=== PATIENT | female | born 1945 | race Caucasian/White ===

== ENCOUNTER 2017-06-03 11:54 | Outpatient (CLI) | payer MEDICARE | END 2017-06-03 11:55 | disposition short-term general hospital (02) | LOC: EMS 11:54 | PROVIDERS: ATTEND Surgery | DX: R03.0 Elevated blood-pressure reading, without diagnosis of hypertension (principal) | CPT/HCPCS: A0170; A0425; A0429 ==

== ENCOUNTER 2017-12-12 20:51 | Emergency (ER) | payer MEDICARE ==
[2017-12-12 21:02] VITALS: BP 156/71
--- NOTE | 2017-12-12 21:39 | XRAY Report ---
Procedure Date: 12/12/2017 Accession Number: [id number] / [id number] Procedure: XR - Wrist 3 View LT CPT Code: FULL RESULT: EXAM: LEFT WRIST RADIOGRAPHY EXAM DATE: 12/12/2017 09:16 PM. CLINICAL HISTORY: Fall. Left wrist pain after fall today. COMPARISON: None. TECHNIQUE: 3 views. FINDINGS: Bones: Acute left distal radial fracture, intra-articular with dorsal buckling of the cortex. Adjacent soft tissue swelling. Chronic nonunion ulnar styloid fracture. Small chronic-appearing bone fragment seen dorsal to the carpal bones measures 1.9 mm. Large dorsal wrist soft tissue swelling. Joints: No subluxations. IMPRESSION: Acute left distal radial fracture, intra-articular with dorsal buckling of the cortex. Adjacent soft tissue swelling. Large dorsal wrist soft tissue swelling. RADIA
--- NOTE | 2017-12-12 21:53 | ED Physician Documentation ---
History of Present Illness - Stated complaint Stated Complaint: LT WRIST INJURY - Chief complaint Chief Complaint: Ext Problem - History obtained from History obtained from: Patient - Additonal information Additional information: 72-year-old female presents to the emergency department with left wrist pain after falling and landed on it. The patient denies injury to her head, neck, torso or lower extremities. Symptoms are described as moderate. No other Injuries. No other associated symptoms. No relieving factors Review of Systems Constitutional: denies: Fever Nose: denies: Congestion Musculoskeletal: reports: Extremity pain, Extremity swelling. denies: Neck pain , Back pain, Pain with weight bearing, Reviewed and negative Immunocompromised: denies: Chemotherapy PD PAST MEDICAL HISTORY - Present Medications Home Medications: Ambulatory Orders Medication Instructions Recorded Confirmed Aspirin 81 mg PO 12/12/17 Atorvastatin [Lipitor] 0 mg 12/12/17 Cholecalciferol [Vitamin D3] 5,000 unit 12/12/17 Escitalopram [Lexapro] 10 mg PO DAILY 12/12/17 12/12/17 Lisinopril 40 mg PO 12/12/17 Metoprolol Tartrate 25 mg PO 12/12/17 Multivitamin/Iron/Folic Acid 1 each PO 12/12/17 [Centrum Adults Tablet] oxyCODONE [Roxicodone] 5 mg PO ONCE PRN #14 tablet 12/12/17 - Allergies Allergies/Adverse Reactions: Allergies Allergy/AdvReac Type Severity Reaction Status Date / Time acetaminophen [From Tylenol] Allergy Unknown Verified 12/12/17 21:04 PD ED PE NORMAL - General General: Alert and oriented X 3, No acute distress - HEENT HEENT: Atraumatic, PERRL, EOMI, Moist mucous membranes - Neck Neck: Supple, no meningeal sign - Derm Derm: Normal color - Extremities Extremities: Other (The patient has full active range of motion of bilateral shoulders, bilateral elbows. The patient is tender to palpation in her left wrist, there is no laceration or crepitus. The patient has normal brisk cap refill and a normal radial pulse.). No: No tenderness to palpate - Neuro Neuro: Alert and oriented X 3, Normal speech - Psych Psych: Normal mood Results - Vitals Vitals: Vital Signs - 24 hr 12/12/17 21:00 Temperature 36.5 C Heart Rate 60 Respiratory 16 Rate Blood Pressure 156/71 H O2 Saturation 98 Oxygen O2 Source Room air - Rads (name of study) X-ray wrist Radiology: Final report received, See rad report (Impression: Acute left distal Radial fracture, intra-articular with dorsal buckling of the cortex. Adjacent soft tissue swelling. Large dorsal wrist soft tissue swelling.) PD MEDICAL DECISION MAKING - ED course ED course: The patient has a closed left distal radius fracture. The patient will be splinted in a sugar tong splint. I have advised follow-up with orthopedics for definitive management. The patient agrees and understands. I discussed warning signs and recommended returning to the emergency department immediately for worsening or any concerns - Sepsis Event Vital Signs: Vital Signs - 24 hr 12/12/17 21:00 Temperature 36.5 C Heart Rate 60 Respiratory 16 Rate Blood Pressure 156/71 H O2 Saturation 98 Oxygen O2 Source Room air Departure - Departure Disposition: 01 Home, Self Care Clinical Impression: Wrist fracture, closed Qualifiers: Encounter type: initial encounter Laterality: left Qualified Code(s): S62.102A - Fracture of unspecified carpal bone, left wrist, initial encounter for closed fracture Condition: Good Instructions: ED Fx Wrist Ch Follow-Up: Silvano Yeung MD [Provider Admit Priv/Credential] - Within 3 Days (Call Tomorrow to schedule an appointment) Prescriptions: oxyCODONE [Roxicodone] 5 mg PO ONCE PRN #14 tablet PRN Reason: Pain Comments: Please return to the ED for worsening symptoms or any concerns
[2017-12-12] MEDS: oxyCOD/ACETAMIN 5 MG/325 MG TABLET PO STA (22:12)
[2017-12-12] MEDS: oxyCODONE 5 MG TABLET PO STA (22:12)
== END 2017-12-12 22:15 | disposition home or self-care (01) ==
LOC: ED 20:51
DX: S52.572A Other intraarticular fracture of lower end of left radius, initial encounter for closed fracture (principal); W01.0XXA Fall on same level from slipping, tripping and stumbling without subsequent striking against object, initial encounter; Y93.89 Activity, other specified; Z79.82 Long term (current) use of aspirin
CPT/HCPCS: 29125; 99283

== ENCOUNTER 2020-04-26 14:18 | Outpatient (CLI) | payer MEDICARE ==
[2020-04-26 20:07] LABS: ALBUMIN 4.2 g/dL (3.2-5.5); ALKALINE PHOSPHATASE 103 IU/L (42-121); ALT ALANINE AMINOTRANSFERASE 36 IU/L (10-60); AST ASPARTATE AMINOTRANSFERASE 36 IU/L (10-42); BILIRUBIN,TOTAL 0.6 mg/dL (0.2-1.0)
[2020-04-26 20:09] LABS: BILIRUBIN,DIRECT < 0.1 mg/dL (0.1-0.5)
== END 2020-04-26 14:19 | disposition home or self-care (01) ==
LOC: LAB.S 14:18
PROVIDERS: ATTEND Internal Medicine Hematology & Oncology
DX: R79.89 Other specified abnormal findings of blood chemistry (principal)
CPT/HCPCS: 36415; 80076

== ENCOUNTER 2020-12-19 16:42 | Outpatient (CLI) | payer MEDICARE | END 2020-12-19 16:43 | disposition home or self-care (01) | LOC: COV 16:42 | PROVIDERS: ATTEND Family Medicine | DX: Z20.822 Contact with and (suspected) exposure to COVID-19 (principal) ==

== ENCOUNTER 2021-06-26 08:27 | Outpatient (CLI) | payer MEDICARE ==
[2021-06-26 15:13] LABS: BASOPHILS % (AUTO) 0.7 %; EOSINOPHILS # (AUTO) 0.1 10^3/uL (0.0-0.7); EOSINOPHILS % (AUTO) 2.6 %; HCT - HEMATOCRIT 42.9 % (37.0-47.0); LYMPHOCYTES # (AUTO) 1.3 10^3/uL (1.5-3.5); LYMPHOCYTES % (AUTO) 24.5 %; MEAN CORPUSCULAR HEMOGLOBIN 31.3 pg (27.0-31.0); MEAN CORPUSCULAR HGB CONC 32.6 g/dL (32.0-36.0); MEAN PLATELET VOLUME 10.3 fL (7.9-10.8); MONOCYTES # (AUTO) 0.4 10^3/uL (0.0-1.0); MONOCYTES % (AUTO) 7.7 %; NEUTROPHILS # (AUTO) 3.4 10^3/uL (1.5-6.6); NEUTROPHILS % (AUTO) 64.3 %; PLT - PLATELET COUNT 302 10^3/uL (130-450); RED BLOOD COUNT 4.47 10^6/uL (4.20-5.40); RED CELL DISTRIBUTION WIDTH 12.9 % (12.0-15.0); WHITE BLOOD COUNT 5.4 x10^3/uL (4.8-10.8)
[2021-06-26 15:39] LABS: ALBUMIN 4.4 g/dL (3.2-5.5); ALBUMIN/GLOBULIN RATIO 1.5 (1.0-2.2); ALKALINE PHOSPHATASE 97 IU/L (42-121); ALT ALANINE AMINOTRANSFERASE 31 IU/L (10-60); AST ASPARTATE AMINOTRANSFERASE 33 IU/L (10-42); BUN - BLOOD UREA NITROGEN 25 mg/dL (6-20); CALCIUM 9.4 mg/dL (8.5-10.3); CARBON DIOXIDE - CO2 29 mmol/L (21-32); CHLORIDE 103 mmol/L (101-111); CHOL/HDL RATIO 2.2 (<4.4); CHOLESTEROL 179 mg/dL; CREATININE 0.9 mg/dL (0.4-1.0); GFR - MDRD 61 (>89); GLUCOSE 111 mg/dL (70-100); HDL CHOLESTEROL 80 mg/dL; LDL CHOLESTEROL,CALCULATED 88 mg/dL; LDL/HDL RATIO 1.1 (<4.4); POTASSIUM 3.7 mmol/L (3.5-5.0); SODIUM 141 mmol/L (135-145); TOTAL PROTEIN 7.4 g/dL (6.7-8.2); TRIGLYCERIDES 53 mg/dL; VLDL CHOLESTEROL 11 mg/dL
[2021-06-26 16:17] LABS: THYROID STIMULATING HORMONE 5.72 uIU/mL (0.34-5.60)
[2021-06-26 16:54] LABS: FREE T4 (FREE THYROXINE) 0.72 ng/dL (0.58-1.64)
== END 2021-06-26 08:28 | disposition home or self-care (01) ==
LOC: LAB.S 08:27
PROVIDERS: ATTEND Internal Medicine Cardiovascular Disease
DX: I10 Essential (primary) hypertension (principal); E78.2 Mixed hyperlipidemia; R01.1 Cardiac murmur, unspecified
CPT/HCPCS: 36415; 80053; 80061; 83721; 84439; 84443; 85025

== ENCOUNTER 2022-02-23 09:12 | Outpatient (CLI) | payer MEDICARE ==
[2022-02-23 15:03] LABS: CHOL/HDL RATIO 1.9 (<4.4); CHOLESTEROL 160 mg/dL; HDL CHOLESTEROL 86 mg/dL; TRIGLYCERIDES 37 mg/dL
[2022-02-23 15:05] LABS: THYROID STIMULATING HORMONE 2.66 uIU/mL (0.34-5.60)
[2022-02-23 20:58] LABS: ESTIMATED AVERAGE GLUCOSE 105 mg/dL (70-100); HEMOGLOBIN A1c% 5.3 % (4.27-6.07)
== END 2022-02-23 09:13 | disposition home or self-care (01) ==
LOC: LAB.S 09:12
PROVIDERS: ATTEND Family Medicine
DX: Z00.00 Encounter for general adult medical examination without abnormal findings (principal); E78.2 Mixed hyperlipidemia; R73.03 Prediabetes; E03.8 Other specified hypothyroidism
CPT/HCPCS: 36415; 80061; 83036; 83721; 84443

== ENCOUNTER 2022-11-27 14:50 | Outpatient (CLI) | payer MEDICARE | END 2022-11-27 14:51 | disposition home or self-care (01) | LOC: LAB.S 14:50 | PROVIDERS: ATTEND Registered Nurse | DX: Z53.9 Procedure and treatment not carried out, unspecified reason (principal) | CPT/HCPCS: 81001; 87086 ==